=== PATIENT | male | born 1960 | race Caucasian/White ===

== ENCOUNTER 2018-10-08 10:50 | Day surgery (SDC) | payer BC ==
--- NOTE | 2018-10-08 08:20 | HP ---
DATE OF SURGERY: 10/08/2018 HISTORY OF PRESENT ILLNESS: The patient is a 58 year-old with last colonoscopy five years or more ago. No bloody stools. No change in bowel movements. He is having some problems with some hemorrhoid flare up intermittently. No pain currently. History of polyps in the past. He is in need of follow up colonoscopy. He is also considering possible internal hemorrhoid banding. PAST MEDICAL HISTORY: Hypercholesterolemia. PAST SURGICAL HISTORY: Hernia surgery. Abdominal surgery. Rotator cuff. Colonoscopy in the past. MEDICATIONS: Atorvastatin according to the patient. ALLERGIES: NKDA. FAMILY HISTORY: Heart disease. SOCIAL HISTORY: No smoking. Occasional alcohol use denies abuse. REVIEW OF SYSTEMS: Twelve systems reviewed. No chest pain or palpitations other systems negative or noncontributory as above and per preadmission questionnaire. PHYSICAL EXAMINATION: GENERAL: No acute distress. HEENT: Sclerae nonicteric. NECK: No JVD. CHEST: Equal excursion, nonlabored breathing. CVS: Regular rate and rhythm. ABDOMEN: Soft. No peritoneal signs. EXTREMITIES: No significant edema. NEURO: Alert, oriented, moving extremities symmetrically. No gross motor deficits noted. RECTAL: Deferred timed to endoscopy exam. IMPRESSION: Need for follow up screening colonoscopy possible internal hemorrhoid banding as he has history of having hemorrhoid flare ups if indicated at the time. Explained in detail including but not limited to bleeding or infection, risk of bowel injury or perforation possibly requiring open procedure, risk of missed or nondiagnosis or incomplete exam possibly requiring barium enema, other studies or procedures, general risk of anesthesia or sedation, risk of bowel prep, postoperative risk of nausea or cramping. Hemorrhoids small risk of bleeding or infection, possibility it will not be prominent enough to warrant banding at this time. He may need to continue high fiber diet to titrate soft, bulky stools. Even if banded he could have progression of hemorrhoidal disease over time possibly require other procedures or studies, rebanding or even excisional therapy. He understands and agrees to the planned procedure and will proceed with colonoscopy with possible internal hemorrhoid banding as an outpatient.
[~2018-10-08 10:50] MED LIST: Lactated Ringers 1,000 ML IV ONE; Lactated Ringers 1,000 ML IV SCH
[2018-10-08] MEDS ORDERED: DIPRIVAN 200 MG/20 ML IV ONE (10:51)
[2018-10-08] MEDS ORDERED: ANUSOL-HC 2.5% CREAM 30 GM ONE (12:39)
[2018-10-08 13:06] VITALS: O2SAT 96
[2018-10-08 13:37] VITALS: BP 150/72; PULSE 67
--- NOTE | 2018-10-09 08:27 | OP ---
SURGERY DATE/TIME: 10/08/2018 1215 PREOPERATIVE DIAGNOSIS: Need for follow up screening colonoscopy, prior history of polyps. Flair up of internal hemorrhoids. POSTOPERATIVE DIAGNOSES: 1) Adequate prep. 2) Diverticulosis. 3) Two internal and external hemorrhoids. 4) Small raised lesions sigmoid colon versus hyperplastic lesion, path pending. PROCEDURES: 1) Colonoscopy to cecum with hot biopsy small raised area of sigmoid colon versus hyperplastic lesion. 2) Exam under sedation with internal hemorrhoid banding x2 columns. SURGEON: Dr. Kade Ward. ANESTHESIA: MAC. ESTIMATED BLOOD LOSS: Minimal. INDICATIONS: As noted above. Risks and benefits explained in detail but not limited to and consent obtained. DESCRIPTION OF PROCEDURE AND FINDINGS: The patient is taken to the operating room. MAC anesthesia introduced. After official time out and no disagreement with planned procedure, digital rectal exam did not reveal any large rectal masses. He did have some internal and external hemorrhoids. Video colonoscope inserted and passed up through the tortuous sigmoid, descending, transverse, ascending colon around to the cecum. Appendiceal orifice and valve well visualized. Prep overall was adequate. There were some areas of liquidy semi-solid and some solid stool limiting the exam just slightly. It was felt there was no evidence of any large lesions or polyps. He did have some diverticulosis. He had small 1 mm raised lesion whether this is a very early polyp versus hyperplastic lesion removed in the sigmoid colon just above the rectosigmoid. Scope pulled back. He had internal and external hemorrhoids intermittently inflamed significantly. Hot biopsy had been concentrated in sigmoid raised lesion. The scope was then carefully withdrawn. There were no signs of any other large polyps, masses or obstructing lesions. At this point while he remained under MAC anesthesia in lateral position, half-zuñiga retractor carefully inserted. It was felt that his left lateral and left posterior were more prominent than the anterior and did not seem prominent to warrant banding. Bands first fired in the left lateral position with good tuft of tissue noted. Hemostasis noted. The half-zuñiga retractor carefully re-inserted. The left posterior and slightly posterior and lateral then the common band was fired without difficulty with good tuft of tissue noted. Good hemostasis noted. Scope and retractor removed. The patient tolerated the procedure well. There were no immediate complications. Findings discussed with the family out in the waiting area. Continue high fiber diet to titrate soft bulky stools.
== END 2018-10-08 13:41 | disposition home or self-care (01) ==
LOC: SDC 10:50
PROVIDERS: ATTEND Surgery
DX: Z12.11 Encounter for screening for malignant neoplasm of colon (principal); K63.5 Polyp of colon; K57.30 Diverticulosis of large intestine without perforation or abscess without bleeding; K64.4 Residual hemorrhoidal skin tags; K64.8 Other hemorrhoids; Z86.010 Personal history of colon polyps
CPT/HCPCS: J2704; A9270-GY

== ENCOUNTER 2022-11-13 11:34 | Emergency (ER) | payer BC ==
--- NOTE | 2022-11-13 12:31 | ERPHSYRPT ---
- History of Present Illness Time Seen by Provider: 11/13/22 12:26 Source: patient, family Exam Limitations: no limitations Patient Subjective Stated Complaint: pt reports left groin/leg pain starting 11/10/22. pt reports recent stroke, 10/23/22, treated with TPA ,states at that time his left leg was effected, and that was his indication that he was having a stroke. states today he is having shooting pain down that left leg starting at the groin that is worse with movement. Triage Nursing Assessment: pt is aox3, speech is clear, afebrile, pupils perrl, resps easy and non labored, cap refill < 3 seconds, pt skin pink warm dry. pt ROM, sensation intact, gait is normal. Physician History: Pt has has some left groin thigh pain for 3 days and is SP CVA affecting that same leg on Oct 23 responding to TPA and [facility] with minimal residuals- some balance residual. He states this is not like that CVA but has had pain in that leg only and no trauma. He is only on ASA 325 daily as a blood thinner. Tender left thigh with palpation. Only in hospital 3 days but discussed risks of DVT and pt and wish to proceed with US testing to exclude DVT, as well as CT head ( discussed rad risks) and Teleneuro to exclude new CVA risks or to rate these risks. Discussed also and ordered lab, EKG, CBC, CMT. Trop. with pt and family. Reviewed outside [facility] and [facility] records. Independent interview source with confirms above as well. Method of Injury: unknown Occurred: last week Quality: constant, aching, throbbing Severity of Pain-Max: moderate Severity of Pain-Current: moderate Lower Extremities Pain: thigh: left Modifying Factors: Improves With: movement Associated Symptoms: none Allergies/Adverse Reactions: No Known Drug Allergies Allergy (Verified 11/13/22 12:02) Home Medications: Atorvastatin Calcium [Lipitor 20MG Tablet] 40 mg PO DAILY 10/02/18 [History] Aspirin EC 81 mg [Ecotrin 81 mg] 325 mg PO DAILY 11/13/22 [History] Ergocalciferol (Vitamin D2) [Vitamin D2] 50,000 unit PO Q7D 11/13/22 [History] Fexofenadine/Pseudoephedrine [Fexofenadine-Pse ER 180-240 Tb] 1 each PO DAILY 11/13/22 [History] Lisinopril 5 mg [Zestril 5 MG] 5 mg PO DAILY 11/13/22 [History] Hx Tetanus, Diphtheria Vaccination/Date Given: Yes Hx Influenza Vaccination/Date Given: Yes Hx Pneumococcal Vaccination/Date Given: Yes Immunizations Up to Date: Yes Travel Risk - International Travel Have you traveled outside of the country in past 3 weeks: No - Coronavirus Screening Are you exhibiting any of the following symptoms?: No Close contact with a COVID-19 positive Pt in past 14-21 Days: No - Vaccine Status Have you recieved a Covid-19 vaccination: Yes Manager Heart Failure: Moderna - Vaccination Dates Date of 2cond Vaccination (if applicable): unk - Review of Systems Constitutional: No Fever, No Chills Eyes: No Symptoms Ears, Nose, & Throat: No Symptoms Respiratory: No Cough, No Dyspnea Cardiac: No Chest Pain, No Edema, No Syncope Abdominal/Gastrointestinal: No Abdominal Pain, No Nausea, No Vomiting, No Diarrhea Genitourinary Symptoms: No Dysuria Musculoskeletal: Other (pain left thigh), No Back Pain, No Neck Pain Skin: No Rash Neurological: No Dizziness, No Focal Weakness, No Sensory Changes Psychological: No Symptoms Endocrine: No Symptoms Hematologic/Lymphatic: No Symptoms Immunological/Allergic: No Symptoms All Other Systems: Reviewed and Negative - Past Medical History Pertinent Past Medical History: Yes Neurological History: No Pertinent History ENT History: No Pertinent History Cardiac History: Hypertension Respiratory History: No Pertinent History Endocrine Medical History: No Pertinent History Musculoskeletal History: Fractures GI Medical History: No Pertinent History History: No Pertinent History Psycho-Social History: No Pertinent History Male Reproductive Disorders: No Pertinent History Other Medical History: HX OF RIGHT ROTATOR CUFF REPAIR, HERNIA REPAIR, TMJ SX, RIGHT FINGER FRACTURE. stroke 10/23/22 treated with TPA at [facility] - Past Surgical History Past Surgical History: Yes Neuro Surgical History: No Pertinent History Cardiac: No Pertinent History Respiratory: No Pertinent History Gastrointestinal: Hernia Repair Genitourinary: No Pertinent History Musculoskeletal: Orthopedic Surgery Male Surgical History: No Pertinent History Other Surgical History: jaw for TMJ, right shoulder surgery,rotator cuff - Social History Smoking Status: Never smoker Exposure to second hand smoke: Yes Drug Use: none Patient Lives Alone: No Significant Family History: no pertinent family hx - Nursing Vital Signs Nursing Vital Signs: Initial Vital Signs Temperature 98 F 11/13/22 11:49 Pulse Rate 70 11/13/22 11:49 Respiratory Rate 18 11/13/22 11:49 Blood Pressure 155/78 11/13/22 11:49 O2 Sat by Pulse Oximetry 98 11/13/22 11:49 Pain Scale Pain Intensity 0 - Physical Exam General Appearance: no apparent distress, alert Eyes, Ears, Nose, Throat Exam: moist mucous membranes Neck Exam: non-tender, supple Cardiovascular/Respiratory Exam: chest non-tender, normal breath sounds, regular rate/rhythm, no respiratory distress Gastrointestinal/Abdominal Exam: non-tender, guarding Back Exam: normal inspection, No vertebral tenderness Hips Exam: bilateral: non-tender, normal inspection, normal range of motion, no evidence of injury Legs Exam: left leg: non-tender, bilateral leg: normal inspection, normal range of motion, no evidence of injury Knees Exam: bilateral knee: non-tender, normal inspection, normal range of motion, no evidence of injury Ankle Exam: bilateral ankle: non-tender, normal inspection, normal range of motion, no evidence of injury Foot Exam: bilateral foot: non-tender, normal inspection, normal range of motion, no evidence of injury DTR - Lower Extremities Exam: knee (R): 2+, knee (L): 2+, ankle (R): 2+, ankle (L): 2+ Neuro/Tendon Exam: normal sensation, normal motor functions, normal tendon functions Mental Status Exam: alert, oriented x 3, cooperative Skin Exam: normal color, warm, dry SpO2 Interpretation: normal SpO2: 98 O2 Delivery: Room Air - Course Nursing assessment & vital signs reviewed: Yes EKG Interpreted by Me: Sinus Rhythm, Left Sieper Deviation, NORMAL INTERVALS, NO RMAL QRS, Non-specific ST Changes - CT Exams Head CT Interpretation: Tele-radiologist Report, No/Intracranial Hemorrhag, Other (microangiopath) - Radiology Ultrasound Exam Venous Lower Extremity Ultrasound: tele radiology report, Other (Left DVT) Ordered Tests: Active Orders 24 hr Category Date Time Status Miter Grinder Operator STAT Care 11/13/22 12:37 Active EKG-ER Only STAT Care 11/13/22 12:36 Active IV Insertion STAT Care 11/13/22 12:36 Active NPO (ED) STAT Care 11/13/22 12:36 Active Pulse Oximetry (ED) STAT Care 11/13/22 12:36 Active Tele-Health Consult ROUTINE Cons 11/13/22 12:37 Active HEAD WITHOUT CONTRAST [CT] Stat Exams 11/13/22 12:46 Taken VENOUS UNILAT/LIMITED EXTREMIT [US] Stat Exams 11/13/22 13:28 Taken CBC W DIFF Stat Lab 11/13/22 13:05 Completed CMP Stat Lab 11/13/22 13:05 Completed TROPONIN Q4H Lab 11/13/22 13:05 Completed TROPONIN Q4H Lab 11/13/22 17:06 Completed TROPONIN Q4H Lab 11/13/22 20:45 Ordered Lab/Rad Data: Laboratory Result Diagrams 11/13/22 13:05 11/13/22 13:05 Laboratory Results 11/13/22 11/13/22 11/13/22 Range/Units 17:06 13:05 13:05 WBC (4.0-10.5) x10^3/uL RBC (4.1-5.6) x10^6/uL Hgb (12.5-18.0) g/dL Hct (42-50) % MCV (78-100) fL MCH (26-32) pg MCHC (32-36) g/dL RDW (11.5-14.0) % Plt Count (150-450) x10^3/uL MPV (7.5-11.0) fL Gran % (36.0-66.0) % Immature Gran % (Auto) (0.00-0.4) % Nucleat RBC Rel Count (0.00-0.1) % Eos # (Auto) (0-0.5) x10^3/uL Immature Gran # (Auto) (0.00-0.03) x10^3u/L Absolute Lymphs (auto) (1.0-4.6) x10^3/uL Absolute Monos (auto) (0.0-1.3) x10^3/uL Absolute Nucleated RBC (0.00-0.01) x10^3u/L Lymphocytes % (24.0-44.0) % Monocytes % (0.0-12.0) % Eosinophils % (0.00-5.0) % Basophils % (0.0-0.4) % Absolute Granulocytes (1.4-6.9) x10^3/uL Basophils # (0-0.4) x10^3/uL Sodium 141 (137-145) mmol/L Potassium 4.6 (3.5-5.1) mmol/L Chloride 107 (98-107) mmol/L Carbon Dioxide 27 (22-30) mmol/L Anion Gap 11.5 (5-15) MEQ/L BUN 14 (9-20) mg/dL Creatinine 0.94 (0.66-1.25) mg/dL Estimated GFR > 60.0 ML/MIN Glucose 99 (74-106) mg/dL Calcium 8.9 (8.4-10.2) mg/dL Total Bilirubin 0.90 (0.2-1.3) mg/dL AST 29 (17-59) U/L ALT 23 (0-50) U/L Alkaline Phosphatase 91 (38-126) U/L Troponin I < 0.012 0.022 (0.000-0.034) ng/mL Serum Total Protein 7.5 (6.3-8.2) g/dL Albumin 4.5 (3.5-5.0) g/dL 11/13/22 Range/Units 13:05 WBC 6.3 (4.0-10.5) x10^3/uL RBC 4.71 (4.1-5.6) x10^6/uL Hgb 14.9 (12.5-18.0) g/dL Hct 44.9 (42-50) % MCV 95.3 (78-100) fL MCH 31.6 (26-32) pg MCHC 33.2 (32-36) g/dL RDW 12.4 (11.5-14.0) % Plt Count 202 (150-450) x10^3/uL MPV 9.4 (7.5-11.0) fL Gran % 67.7 H (36.0-66.0) % Immature Gran % (Auto) 0.2 (0.00-0.4) % Nucleat RBC Rel Count 0.0 (0.00-0.1) % Eos # (Auto) 0.26 (0-0.5) x10^3/uL Immature Gran # (Auto) 0.01 (0.00-0.03) x10^3u/L Absolute Lymphs (auto) 1.26 (1.0-4.6) x10^3/uL Absolute Monos (auto) 0.47 (0.0-1.3) x10^3/uL Absolute Nucleated RBC 0.00 (0.00-0.01) x10^3u/L Lymphocytes % 20.0 L (24.0-44.0) % Monocytes % 7.5 (0.0-12.0) % Eosinophils % 4.1 (0.00-5.0) % Basophils % 0.5 (0.0-0.4) % Absolute Granulocytes 4.27 (1.4-6.9) x10^3/uL Basophils # 0.03 (0-0.4) x10^3/uL Sodium (137-145) mmol/L Potassium (3.5-5.1) mmol/L Chloride (98-107) mmol/L Carbon Dioxide (22-30) mmol/L Anion Gap (5-15) MEQ/L BUN (9-20) mg/dL Creatinine (0.66-1.25) mg/dL Estimated GFR ML/MIN Glucose (74-106) mg/dL Calcium (8.4-10.2) mg/dL Total Bilirubin (0.2-1.3) mg/dL AST (17-59) U/L ALT (0-50) U/L Alkaline Phosphatase (38-126) U/L Troponin I (0.000-0.034) ng/mL Serum Total Protein (6.3-8.2) g/dL Albumin (3.5-5.0) g/dL - Progress Progress: improved, re-examined Progress Note: 11/13/22 16:35 discussed pt with neuro covering at [facility] dr. Chilango Conn covering for Dr. Godfrey Neuro service and he said that it should be minimal risk to start elliquis for the DVT and he would advise this to treat the DVT even after the CVA in Oct, at this time including staying on ASA. We placed a call to the teleneuro to confirm whether or not this could be done as outpt , and had [id number] on teleneuro during that consult that a cancer workup is advised to find a source for the clot. However we now knoe the pt had an PFO and would like to discuss that new data as well and this will take some time. 11/13/22 18:39 Dr. Candelario was consulted and he is covering teleneuro and he agrees that pt needs to be on Elliquis and is safe to do so and should be OK for DC with outpt Tx since there is no sign for new CVA and this treats the DVT - also he confirms OK to stop ASA. 11/13/22 19:10 discussed the plan with pt and family including risks for bleeding with elliquis script and further CVA and they are comfortable with the plan for outpt f/u with [facility] neuro and Dr. murray this week and to return meantime if any further symptoms or concerns. 11/13/22 19:13 11/13/22 19:14 Counseled pt/family regarding: lab results, diagnosis, need for follow-up, rad results Medical Desision Making - Independent Historian Additional History obtained from: Spouse - External Record(s) Reviewed Records reviewed as a part of evaluation & management: Inpatient, Discharge Summary - Discussion of managment Care discussed with:: specialist (neuro x 3) Reviewed:: Test results, Need for additional workup Agreed on:: Treatment plan, need for follow-up Will see patient: In office - Diagnostic Testing Diagnostic test were ordered, analyzed, and reviewed by me: Yes Radiological Interpretation: Reviewed by me, Teleradiologist Report - Risk of complications The pt has a mod risk of morbidity or mortality based on: Need for prescription drug management - Departure Departure Disposition: Home Clinical Impression: Left leg DVT, SP CVA/TPA Condition: Good Critical Care Time: No Referrals: EMERITA DE LA VEGA, [Primary Care Provider] - Follow up/PCP as directed Instructions: Deep Vein Thrombosis (Blood Clots in the Legs) (DC), Apixaban Additional Instructions: Follow-up with your Neurologist and Dr. De La Vega this week. Stop the Aspirin. Watch your blood pressure to make sure well controlled/ Begin Elliquis - we will call in for a few days, but you will need an order from your Drs to continue as follow-up is important and they need to know to optimally manage your care. The neurologists also advise completion of the coagulation workup and cancer screenings with your Dr.s Return meantime if any concerns. Avoid strenuous activities or straining. report any head injuries or signs of bleeding or new symptoms to your Dr. or return meantime if any concerns. Prescriptions: Apixaban [Eliquis 2.5 mg Tablet] 2.5 mg PO BID #10 tablet
[2022-11-13 13:10] LABS: Absolute Neutrophil Ct (ANC) 4.27 x10^3/uL (1.4-6.9); BASOPHIL % 0.5 % (0.0-0.4); Basophil (Absolute #) 0.03 x10^3/uL (0-0.4); Eosinophil % 4.1 % (0.00-5.0); Eosinophil (Absolute #) 0.26 x10^3/uL (0-0.5); Hematocrit 44.9 % (42-50); Hemoglobin 14.9 g/dL (12.5-18.0); IMMATURE GRAN # 0.01 x10^3u/L (0.00-0.03); IMMATURE GRAN % 0.2 % (0.00-0.4); Lymphocyte (Absolute #) 1.26 x10^3/uL (1.0-4.6); Mean Cell Volume 95.3 fL (78-100); Mean Corpuscular Hemoglobin 31.6 pg (26-32); Mean Corpuscular Hgb Concent. 33.2 g/dL (32-36); Mean Platelet Volume 9.4 fL (7.5-11.0); Monocyte (Absolute #) 0.47 x10^3/uL (0.0-1.3); Monocytes % 7.5 % (0.0-12.0); Neutrophil % 67.7 % (36.0-66.0); Platelet Count 202 x10^3/uL (150-450); Red Blood Count 4.71 x10^6/uL (4.1-5.6); Red Cell Distribution Width 12.4 % (11.5-14.0); White Blood Count 6.3 x10^3/uL (4.0-10.5)
[2022-11-13 13:27] LABS: ALBUMIN 4.5 g/dL (3.5-5.0); ALKALINE PHOSPHATASE 91 U/L (38-126); ANION GAP 11.5 MEQ/L (5-15); BLOOD UREA NITROGEN 14 mg/dL (9-20); CHLORIDE 107 mmol/L (98-107); Calcium 8.9 mg/dL (8.4-10.2); Carbon Dioxide 27 mmol/L (22-30); Creatinine 1 0.94 mg/dL (0.66-1.25); EST GLOMERULAR FILTRATION RATE > 60.0 ML/MIN; Glucose 99 mg/dL (74-106); Potassium 4.6 mmol/L (3.5-5.1); SGOT/AST 29 U/L (17-59); SGPT/ALT 23 U/L (0-50); SODIUM 141 mmol/L (137-145); Total Protein 7.5 g/dL (6.3-8.2)
[2022-11-13 18:41] VITALS: O2SAT 98
--- NOTE | 2022-11-13 19:12 | XRAY ---
Indication: Left thigh pain. Two-dimensional sonogram and color Doppler imaging of the major venous vessels of the left leg performed. Comparison: None Nonoccluding thrombus seen in the common femoral and greater saphenous veins. No thrombus seen in the remaining deep venous vessels of the left leg. Patent veins demonstrate normal compressibility and normal venous waveforms. Impression: Nonoccluding DVT in the common femoral and greater saphenous veins. Comment: Preliminary report was given.
--- NOTE | 2022-11-13 19:18 | XRAY ---
Indication: Left thigh pain. Recent stroke last month. Daily aspirin. Multiple contiguous axial images obtained through the head without contrast. Comparison: None Age-appropriate global atrophy and minimal periventricular degenerative micro-ischemia bilaterally. No acute intracranial hemorrhage, abnormal extra-axial fluid collection, or mass effect. Fourth ventricle is midline without hydrocephalus. Mancuso-white matter differentiation preserved. Bony calvarium intact. Visualized paranasal sinuses and mastoid air cells are clear. Impression: Nonacute senile brain. Comment: Preliminary interpretation made by [facility]. No critical discrepancy.
[2022-11-13 19:28] VITALS: BP 163/93; PULSE 75
[2022-11-13] MEDS ORDERED: ELIQUIS 2.5 MG TABLET ONE (19:33)
[2022-11-14] MEDS ORDERED: ELIQUIS 2.5 MG TABLET PO ONE (19:26)
== END 2022-11-13 19:40 | disposition home or self-care (01) ==
LOC: ED 11:34
DX: I82.402 Acute embolism and thrombosis of unspecified deep veins of left lower extremity (principal); Z86.73 Personal history of transient ischemic attack (TIA), and cerebral infarction without residual deficits; M79.652 Pain in left thigh; I10 Essential (primary) hypertension; Z79.01 Long term (current) use of anticoagulants; Z79.899 Other long term (current) drug therapy
CPT/HCPCS: 36000; 36415; 70450; 80053; 84484; 85025; 93005; 93041; 93971; 94760; 99284; A9270-GY

== ENCOUNTER 2022-11-14 15:24 | Emergency (ER) | payer BC ==
[2022-11-14] MEDS ORDERED: ENOXAPARIN SODIUM SQ STA (15:43)
--- NOTE | 2022-11-14 15:43 | ERPHSYRPT ---
- History of Present Illness Time Seen by Provider: 11/14/22 15:39 Source: patient Exam Limitations: no limitations Physician History: This is a 62-year-old white male patient seen yesterday in our emergency department and diagnosed with a DVT and placed on Eliquis. Patient seen at Dr. Stubbs's office today and the dosing is lower than the standard for Eliquis. I reviewed the old chart as did Dr. Stubbs and there is no evidence that the patient received Lovenox injection. Patient was prescribed the standard dosing of Eliquis by Dr. Stubbs and is going to have the medication filled. However, she is concerned that the patient will need a dose of Lovenox injection to protect him until he gets the Eliquis prescription filled. She is sending the patient to us for an injection of Lovenox 110 mg subcutaneously. Timing/Duration: today Severity: mild Associated Symptoms: denies symptoms Allergies/Adverse Reactions: No Known Drug Allergies Allergy (Verified 11/14/22 16:02) Home Medications: Atorvastatin Calcium [Lipitor 20MG Tablet] 40 mg PO DAILY 10/02/18 [History] Aspirin EC 81 mg [Ecotrin 81 mg] 325 mg PO DAILY 11/13/22 [History] Ergocalciferol (Vitamin D2) [Vitamin D2] 50,000 unit PO Q7D 11/13/22 [History] Fexofenadine/Pseudoephedrine [Fexofenadine-Pse ER 180-240 Tb] 1 each PO DAILY 11/13/22 [History] Lisinopril 5 mg [Zestril 5 MG] 5 mg PO DAILY 11/13/22 [History] Hx Tetanus, Diphtheria Vaccination/Date Given: Yes Hx Influenza Vaccination/Date Given: Yes Hx Pneumococcal Vaccination/Date Given: Yes Travel Risk - International Travel Have you traveled outside of the country in past 3 weeks: No - Coronavirus Screening Are you exhibiting any of the following symptoms?: No Close contact with a COVID-19 positive Pt in past 14-21 Days: No - Vaccine Status Have you recieved a Covid-19 vaccination: Yes Ski Lift Attendant: Moderna - Vaccination Dates Date of 2cond Vaccination (if applicable): unk - Review of Systems Constitutional: No Symptoms Eyes: No Symptoms Ears, Nose, & Throat: No Symptoms Respiratory: No Symptoms Cardiac: No Symptoms Abdominal/Gastrointestinal: No Symptoms Genitourinary Symptoms: No Symptoms Musculoskeletal: Other (Leg swelling with known DVT) Skin: No Symptoms Neurological: No Symptoms Psychological: No Symptoms Endocrine: No Symptoms Hematologic/Lymphatic: No Symptoms Immunological/Allergic: No Symptoms All Other Systems: Reviewed and Negative - Past Medical History Pertinent Past Medical History: Yes Neurological History: No Pertinent History ENT History: No Pertinent History Cardiac History: Hypertension Respiratory History: No Pertinent History Endocrine Medical History: No Pertinent History Musculoskeletal History: Fractures GI Medical History: No Pertinent History History: No Pertinent History Psycho-Social History: No Pertinent History Male Reproductive Disorders: No Pertinent History Other Medical History: HX OF RIGHT ROTATOR CUFF REPAIR, HERNIA REPAIR, TMJ SX, RIGHT FINGER FRACTURE. stroke 10/23/22 treated with TPA at [facility] - Past Surgical History Past Surgical History: Yes Neuro Surgical History: No Pertinent History Cardiac: No Pertinent History Respiratory: No Pertinent History Gastrointestinal: Hernia Repair Genitourinary: No Pertinent History Musculoskeletal: Orthopedic Surgery Male Surgical History: No Pertinent History Other Surgical History: jaw for TMJ, right shoulder surgery,rotator cuff - Social History Smoking Status: Never smoker Exposure to second hand smoke: Yes Drug Use: none Patient Lives Alone: No Significant Family History: no pertinent family hx - Nursing Vital Signs Nursing Vital Signs: Initial Vital Signs Pulse Rate 64 11/14/22 16:03 Respiratory Rate 18 11/14/22 16:03 Blood Pressure 126/72 11/14/22 16:03 O2 Sat by Pulse Oximetry 96 11/14/22 16:03 Pain Scale Pain Intensity 4 - Physical Exam General Appearance: no apparent distress, alert, anxiety Eye Exam: PERRL/EOMI, eyes nml inspection Ears, Nose, Throat Exam: normal ENT inspection, moist mucous membranes Neck Exam: normal inspection, non-tender, supple, carotid bruit Respiratory Exam: No chest tenderness, No respiratory distress, No airway intact Gastrointestinal/Abdomen Exam: No tenderness Rectal Exam: not done Back Exam: normal inspection, normal range of motion, No CVA tenderness, No vertebral tenderness Extremity Exam: normal range of motion, pelvis stable, swelling (Left lower ex tremity), tenderness (Left lower leg) Neurologic Exam: alert, oriented x 3, cooperative, 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, normal mood/affect, nml cerebellar function, nml station & gait, sensation nml Skin Exam: other (Left lower leg swelling and redness) Lymphatic Exam: No adenopathy SpO2 Interpretation: normal O2 Delivery: Room Air Ordered Tests: Medication Summary Discontinued Medications Generic Name Dose Route Start Last Admin Trade Name Thomas PRN Reason Stop Dose Admin Enoxaparin Sodium 110 mg 11/14/22 15:43 Enoxaparin Sodium 120 Mg/0.8 Ml Syringe SQ 11/14/22 15:44 STAT STA Enoxaparin Sodium Confirm 11/14/22 16:05 Enoxaparin Sodium 120 Mg/0.8 Ml Syringe Administered 11/14/22 16:06 Dose 120 mg SQ .[employer] - Progress Progress Note: 11/14/22 16:13 This patient's medical issue is 1 of low complexity. It is a medical screening exam. Dr. Stubbs sent the patient to us for the patient to receive 110 mg subcutaneous Lovenox. I reviewed the emergency department visit from yesterday. It is very clear that the neurologists that Dr. Resendiz spoke with both agree that the patient can safely be placed on Eliquis to treat a DVT. The dosing of Eliquis should be higher than what was prescribed to actually treat a DVT. Therefore, Dr. Stubbs wanted the patient to receive the 110 mg subcutaneous Lovenox. I discussed in detail with the patient and his spouse that there are risks of bleeding as a potential. They are aware. They wish to have the patient receive this medication. 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 Take all your other medication as directed.
[2022-11-14] MEDS ORDERED: ENOXAPARIN SODIUM SQ ONE (16:05)
[2022-11-14 16:08] VITALS: BP 126/72; PULSE 64; O2SAT 96
== END 2022-11-14 16:48 | disposition home or self-care (01) ==
LOC: ED 15:24
DX: I82.402 Acute embolism and thrombosis of unspecified deep veins of left lower extremity (principal); I10 Essential (primary) hypertension; Z79.899 Other long term (current) drug therapy
CPT/HCPCS: 96372; 99281; J1650